=== PATIENT | male | born 1950 | race Caucasian/White ===

== ENCOUNTER → 2024-10-15 13:03 | Outpatient (REF) | payer MEDICARE, OTHER, SELFPAY ==
[2024-10-15 15:48] LABS: Urine Albumin 1+ (Neg - Trace); Urine Bilirubin Negative (Negative); Urine Character Clear (Clear); Urine Color Yellow; Urine Glucose Negative (Negative); Urine Ketone Negative (Negative); Urine Leukocyte Negative (Negative); Urine Nitrite Negative (Negative); Urine Occult Blood Negative (Negative); Urine Specific Gravity 1.015 (<1.030); Urine Urobilinogen Negative (Neg - 1+)
[2024-10-15 15:51] LABS: % Basophils 0.8 % (0-2); % Eosinophils 3.4 % (0-6); % Immature Granulocytes 0.3 % (0-0.5); % Lymphocytes 26.8 % (20.5-51.1); % Monocytes 9.3 % (1.7-9.3); % Neutrophils 59.4 % (42.2-75.2); Absolute Basophils 0.1 10^3/uL (0-0.2); Absolute Eosinophils 0.3 10^3/uL (0-0.7); Absolute Lymphocytes 2.3 10^3/uL (1.2-3.4); Absolute Monocytes 0.8 10^3/uL (0.1-0.6); Absolute Neutrophils 5.1 10^3/uL (1.4-6.5); Hematocrit 47.2 % (39.0-52.0); Hemoglobin 15.3 g/dL (13.0-18.0); Mean Corp Hgb Conc. 32.4 g/dL (33.0-37.0); Mean Corpuscular Hgb 30.1 pg (27.0-31.0); Mean Corpuscular Volume 92.9 fL (80.0-94.0); Mean Platelet Volume 11.7 fL (7.4-10.4); Nucleated Red Blood Cells % 0 % (-); Platelet Count 199 10^3/uL (130-400); Red Blood Cell Count 5.08 10^6/uL (4.70-6.10); Red Cell Dist. Width 13.8 % (11.5-14.5); White Blood Cell Count 8.6 10^3/uL (4.8-10.8)
[2024-10-15 15:59] LABS: Urine Mucus Moderate; Urine Red Blood Cell 0-2 /HPF (0-2); Urine Squamous Cell 0-2 /LPF (Few); Urine White Cell 0-2 /HPF (0-5)
[2024-10-15 16:00] LABS: ALT (SGPT) 30 U/L (0-50); AST (SGOT) 30 U/L (17-59); Albumin 4.9 g/dl (3.5-5.0); Alkaline Phosphatase 68 U/L (38-126); Blood Urea Nitrogen 22 mg/dl (9-20); Calcium 9.7 mg/dl (8.4-10.2); Carbon Dioxide 26 mmol/L (22-30); Chloride 107 mmol/L (98-107); Glucose 98 mg/dl (70-99); HDL Cholesterol 53 mg/dl; LDL Cholesterol, Calculated 66 mg/dl; Sodium 140 mmol/L (135-145); Total Cholesterol 130 mg/dl (50-199); Total Protein 7.8 g/dl (6.3-8.2); Triglyceride 58 mg/dl (10-149); Urine Bacteria Few (Negative); Very Low Density Lipoprotein 11 mg/dl (0-30); eGFR > 60.00
[2024-10-15 16:01] LABS: Urine Sperm Seen
[2024-10-15 16:29] LABS: PSA, Total - Screen 1.11 ng/ml (0.0-4.0)
== END ==
LOC: HWRCS 13:03
PROVIDERS: ATTENDING PHYSICIAN Internal Medicine Cardiovascular Disease; FAMILY PHYSICIAN Internal Medicine
DX: I35.0 Nonrheumatic aortic (valve) stenosis (principal); K21.9 Gastro-esophageal reflux disease without esophagitis; E78.2 Mixed hyperlipidemia; I10 Essential (primary) hypertension; N48.6 Induration penis plastica; Z96.0 Presence of urogenital implants; F17.200 Nicotine dependence, unspecified, uncomplicated; Z96.651 Presence of right artificial knee joint; M17.12 Unilateral primary osteoarthritis, left knee; Z12.5 Encounter for screening for malignant neoplasm of prostate
CPT/HCPCS: 36415; 80053; 80061; 81003; 81015; 84439; 84443; 85025; 93306; G0103

== ENCOUNTER → 2025-03-25 10:40 | Outpatient (REF) | payer MEDICARE, OTHER, SELFPAY ==
[2025-03-25 16:17] LABS: TSH 0.60 uIU/ml (0.47-4.68)
== END ==
LOC: HWLAB 10:40
PROVIDERS: ATTENDING PHYSICIAN Otolaryngology; FAMILY PHYSICIAN Internal Medicine
DX: E03.9 Hypothyroidism, unspecified (principal)
CPT/HCPCS: 36415; 84439; 84443